=== PATIENT | female | born 1985 | race American Indian/Alaskan Native ===

== ENCOUNTER 2019-11-08 08:12 | Emergency (ER) | payer MEDICAID ==
[2019-11-08 08:18] VITALS: BP 138/75
--- NOTE | 2019-11-08 09:09 | Emergency Department Report ---
Chief Complaint: Urogenital-Female Stated Complaint: STD CHECK Time Seen by Provider: 11/08/19 08:40 - HPI History of Present Illness: This is a 34-year-old female who presents to the emergency room for STD screening. Patient states she received a call from someone she had intercourse with a few days ago stating they had STD symptoms she needed to go and get checked. Patient states she is not concerned of due to hysterectomy. She denies vaginal discharge, hematuria, urinary frequency, urgency, dysuria, pelvic pain, or back pain. - ROS Review of Systems: General: Requests STD check. : Denies vaginal discharge, hematuria, abnormal menses, urinary frequency, dysuria. - Exam Vital Signs: Vital Signs 11/08/19 08:17 Temperature 98.3 F Pulse Rate 80 Respiratory 16 Rate Blood Pressure 138/75 O2 Sat by Pulse 99 Oximetry Physical Exam: GENERAL: The patient is looking well, in no acute distress. CHEST: Air entry is adequate bilaterally with no rhonchi, crackles are appreciated. HEART: Sounds 1 and 2 are heard and are normal. Regular rate and rhythm, no murmurs, gallops, or rubs. ABDOMEN: Soft and nontender. Bowel sounds are normal. There is no hepatosplenomegaly. SKIN: Without rash. EXTREMITIES: Without edema, cyanosis, or clubbing. MSE screening note: Focused history and physical exam performed. Due to findings the following was ordered: ED Medical Decision Making - Medical Decision Making This is a 34 y.o. Female presents to the emergency room with a nonemergent complaint. Patient requesting STD screening. She denies vaginal discharge, hematuria, pelvic pain, back pain, fever, or chills. Vitals are normal in position in no acute distress. At this time patient is asymptomatic. Referrals given to follow-up with the racebook writer for STD screening. Patient discharged home stable. ED Disposition for MSE Clinical Impression: Feared complaint without diagnosis Disposition: DC-01 TO HOME OR SELFCARE Is pt being admited?: No Condition: Stable Instructions: Safe Sex (ED), Sexually Transmitted Diseases (ED) Additional Instructions: Follow-up with a racebook writer from the referral list provided for full STD test. Referrals: [facility] [Provider Group] - 3-5 Days [facility] [Provider Group] - 3-5 Days [facility] [Provider Group] - 3-5 Days Forms: Work/School Release Form(ED) Time of Disposition: 09:09
== END 2019-11-08 09:30 | disposition home or self-care (01) ==
LOC: ED 08:12
DX: Z11.3 Encounter for screening for infections with a predominantly sexual mode of transmission (principal)

== ENCOUNTER 2020-01-12 09:23 | Emergency (ER) | payer MEDICAID ==
[2020-01-12 09:36] VITALS: BP 135/80
--- NOTE | 2020-01-12 10:34 | Emergency Department Report ---
Chief Complaint: Dental/Oral Stated Complaint: TOOTH ACHE Time Seen by Provider: 01/12/20 10:27 - Exam Vital Signs: Vital Signs 01/12/20 09:35 Temperature 98.5 F Pulse Rate 89 Respiratory 16 Rate Blood Pressure 135/80 O2 Sat by Pulse 100 Oximetry MSE screening note: Focused history and physical exam performed. Due to findings the following was ordered: ED Medical Decision Making - Medical Decision Making Ms. Rosa is a very pleasant healthy 34-year-old female who presents with tooth pain since last night. While eating food she felt a crack. With severe pain at the area of the tooth. Ibuprofen 800 mg did not provide much pain relief. On physical exam Ms. Rosa is comfortable with normal voice. No facial or neck swelling. Oropharyngeal exam tooth #20 has large area of decay partial tooth fracture. No gum swelling. No purulence. No jaw swelling. Medical screening exam performed. There is no life or limb threatening condition which needs further treatment. I provided extensive verbal education. She has a dental appointment on Tuesday. I recommended alternating ibuprofen and Tylenol for pain relief. Also recommended [id number] topical gel pain relief. ED Disposition for MSE Clinical Impression: Complex dental cavity Disposition: Z- MED SCREENING EXAM-LEFT Is pt being admited?: No Does the pt Need Aspirin: No Condition: Stable Referrals: [facility] [Outside] - 3-5 Days
== END 2020-01-12 10:47 | disposition left against medical advice (07) ==
LOC: ED 09:23
DX: K02.9 Dental caries, unspecified (principal)
CPT/HCPCS: 99281

== ENCOUNTER 2020-03-15 13:05 | Emergency (ER) | payer MEDICAID ==
[2020-03-15 13:12] VITALS: BP 137/85
[2020-03-15] MEDS ORDERED: SODIUM CHLORIDE 0.9% 1000 ML 1,000 ML IV ONE (14:58)
[2020-03-15] MEDS ORDERED: CLINDAMYCIN 600 MG/50 mL 600 MG/50 ML BAG IV ONE (14:59)
--- NOTE | 2020-03-15 15:04 | Emergency Department Report ---
ED ENT HPI - General Chief complaint: Dental/Oral Stated complaint: LFT SIDE TOOTHACHE/SWELLING Time Seen by Provider: 03/15/20 14:15 Source: patient Mode of arrival: Ambulatory Limitations: No Limitations - History of Present Illness Initial comments: This is a 35-year-old -[place] female who presents to the emergency room with dental pain and left-sided facial swelling. Patient reports tooth #19 have been causing pain for several weeks but became worse yesterday. She tried calling her dental office with no answer. States when she woke up this morning she had left-sided facial swelling that became worse as the day progressed. She denies hoarseness, sore throat, fever, chills, or chest pain. MD complaint: tooth pain Onset/Timin -: days(s) Location: tooth # (19) Severity: severe Severity scale (0 -10): 10 Quality: stabbing, aching Consistency: constant Improves with: none Worsens with: eating, movement Context- Dental: history of dental caries, poor dental care Associated Symptoms: gum swelling, toothache - Related Data Previous Rx's Medication Instructions Recorded Last Taken Type Naproxen [Naprosyn TAB] 500 mg PO BID #30 tablet 01/07/15 Unknown Rx Acetaminophen/Codeine [Tylenol 1 tab PO Q6H PRN #12 tab 03/15/20 Unknown Rx /Codeine # 3 tab] Clindamycin [Clindamycin CAP] 300 mg PO Q6H #21 capsule 03/15/20 Unknown Rx Naproxen [Naprosyn] 500 mg PO BID #20 tablet 03/15/20 Unknown Rx Allergies Allergy/AdvReac Type Severity Reaction Status Date / Time No Known Allergies Allergy Verified 11/08/19 08:12 ED Dental HPI - General Chief complaint: Dental/Oral Stated complaint: LFT SIDE TOOTHACHE/SWELLING Time Seen by Provider: 03/15/20 14:15 Source: patient Mode of arrival: Ambulatory Limitations: No Limitations - Related Data Previous Rx's Medication Instructions Recorded Last Taken Type Naproxen [Naprosyn TAB] 500 mg PO BID #30 tablet 01/07/15 Unknown Rx Acetaminophen/Codeine [Tylenol 1 tab PO Q6H PRN #12 tab 03/15/20 Unknown Rx /Codeine # 3 tab] Clindamycin [Clindamycin CAP] 300 mg PO Q6H #21 capsule 03/15/20 Unknown Rx Naproxen [Naprosyn] 500 mg PO BID #20 tablet 03/15/20 Unknown Rx Allergies Allergy/AdvReac Type Severity Reaction Status Date / Time No Known Allergies Allergy Verified 11/08/19 08:12 ED Review of Systems ROS: Stated complaint: LFT SIDE TOOTHACHE/SWELLING Other details as noted in HPI Constitutional: denies: chills, fever ENT: dental pain. denies: ear pain, throat pain, congestion Respiratory: denies: cough, shortness of breath, wheezing Cardiovascular: denies: chest pain, palpitations Gastrointestinal: denies: abdominal pain, nausea, diarrhea Musculoskeletal: denies: back pain, joint swelling, arthralgia Skin: denies: rash, lesions Neurological: denies: headache, weakness, paresthesias Psychiatric: denies: anxiety, depression ED Past Medical Hx - Past Medical History Previous Medical History?: No - Surgical History Past Surgical History?: Yes Additional Surgical History: HYSTO/ C BALLOON DIPPER SURGERY - Social History Smoking Status: Never Smoker Substance Use Type: None - Medications Home Medications: Home Medications Medication Instructions Recorded Confirmed Last Taken Type Naproxen [Naprosyn TAB] 500 mg PO BID #30 tablet 01/07/15 Unknown Rx Acetaminophen/Codeine [Tylenol 1 tab PO Q6H PRN #12 tab 03/15/20 Unknown Rx /Codeine # 3 tab] Clindamycin [Clindamycin CAP] 300 mg PO Q6H #21 capsule 03/15/20 Unknown Rx Naproxen [Naprosyn] 500 mg PO BID #20 tablet 03/15/20 Unknown Rx ED Physical Exam - General Limitations: No Limitations General appearance: alert, in no apparent distress - ENT ENT exam: Present: normal orophraynx, mucous membranes moist, TM's normal bilaterally, normal external ear exam, other (#19 Dental caries medial tooth, palpated nodule to gingiva, tenderness) - Respiratory Respiratory exam: Present: normal lung sounds bilaterally. Absent: respiratory distress - Cardiovascular Cardiovascular Exam: Present: regular rate, normal rhythm. Absent: systolic murmur, diastolic murmur, rubs, gallop - GI/Abdominal GI/Abdominal exam: Present: soft, normal bowel sounds - Extremities Exam Extremities exam: Present: normal inspection - Neurological Exam Neurological exam: Present: alert, oriented X3, normal gait - Psychiatric Psychiatric exam: Present: normal affect, normal mood - Skin Skin exam: Present: warm, dry, intact, normal color. Absent: rash ED Course Vital Signs 03/15/20 13:10 Temperature 98.5 F Pulse Rate 104 H Respiratory 18 Rate Blood Pressure 137/85 O2 Sat by Pulse 100 Oximetry ED Medical Decision Making - Medical Decision Making This is a 35-year-old female that presents with tooth abscess and left side facial swelling since this morning. Vitals are stable and patient in no acute distress. Susceptible of dental abscess and dental caries with facial cellulitis. Given tramadol and IV antibiotics once in ER. Start antibiotics and analgesics. Discussed plan with patient. She agreed with ER plan. Discharged home with clindamycin and tramadol. Follow up with dentist with strict return instructions. Critical care attestation.: If time is entered above; I have spent that time in minutes in the direct care of this critically ill patient, excluding procedure time. ED Disposition Clinical Impression: Facial cellulitis, Dental abscess, Dental caries Disposition: TO HOME OR SELFCARE Is pt being admited?: No Condition: Stable Instructions: Dental Caries (ED), Dental Abscess (ED) Additional Instructions: Please antibiotics as prescribed. Take pain medication every 6-8 hours as needed. Follow-up with a dentist for continued care. Return to the emergency room if worsening symptoms. Prescriptions: Clindamycin [Clindamycin CAP] 300 mg PO Q6H #21 capsule Naproxen [Naprosyn] 500 mg PO BID #20 tablet Acetaminophen/Codeine [Tylenol /Codeine # 3 tab] 1 tab PO Q6H PRN #12 tab PRN Reason: Pain , Severe (7-10) Referrals: [facility] [Outside] - 3-5 Days [facility] [Outside] - 3-5 Days [facility] [Outside] - 3-5 Days Time of Disposition: 15:42
[2020-03-15] MEDS ORDERED: traMADol 50 MG TAB PO ONE (15:37)
== END 2020-03-15 16:05 | disposition home or self-care (01) ==
LOC: ED 13:05
DX: L03.211 Cellulitis of face (principal); K04.7 Periapical abscess without sinus; K02.9 Dental caries, unspecified; Z98.890 Other specified postprocedural states; Z79.2 Long term (current) use of antibiotics; Z79.899 Other long term (current) drug therapy
CPT/HCPCS: 99281